=== PATIENT | female | born 1980 | race Caucasian/White ===

== ENCOUNTER 2018-12-15 20:07 | Inpatient (IN) | payer MEDICAID ==
[~2018-12-15] VITALS: Ht 167.6 cm; Wt 111.6 kg
[2018-12-15 20:16] VITALS: BP 175/91
--- NOTE | 2018-12-15 20:19 | NUR ---
PT TAKEN TO BED 5
--- NOTE | 2018-12-15 20:22 | NUR ---
38 YO F BIB SELF PRESENTS TO ED C/O 03/18 DULL, DIFFUSE ABDOMINAL PAIN SINCE 0900 THIS AM. PT ALSO REPORTS NVD; EMESIS X 10, DIARRHEA X 2. PT DENIES RECENT TRAVEL OR FEVER, PAIN/BURNING WITH URINATION. PT STATES SHE HAS HAD ABDOMINAL SURGERY IN THE PAST WHERE THEY TRIED TO "REMOVE INFECTION AND CLOSE A HOLE" BUT DOESN'T KNOW THE NAME OF THE PROCEDURE. PT STATES THE ONLY THING SHE'S EATEN TODAY IS A BANANA. -- PT AWAKE, ALERT, CALM, COOPERATIVE. ANSWERS QUESTION APPROPRIATELY. BEHAVIOR AGE APPROPRIATE. APPEARS TO BE IN PAIN. -- ABD IS LARGE, SOFT, NON-TENDER. PT COMPLAINS OF GENERAL PAIN WITH PALPATION. BOWEL SOUNDS PRESENT +4. -- SKIN PINK, WARM, DRY. BREATHING EVEN, UNLABORED. PMH-- BILATERAL OOPHERECTOMY AND HYSTERECTOMY, 2018 RX-- DENIES
--- NOTE | 2018-12-15 20:27 | NUR ---
Dr. Read examining patient.
[2018-12-15] MEDS ORDERED: ONDANSETRON 4 MG ODT PO ONE (20:35)
--- NOTE | 2018-12-15 20:53 | NUR ---
PT TAKEN TO CT VIA RMINISTERIO.
[2018-12-15 21:01] LABS: BASOPHILS % (AUTO) 0.2 % (0.0-2.0); EOSINOPHILS % (AUTO) 0.1 % (0.0-4.0); HEMATOCRIT 41.9 % (36-48); HEMOGLOBIN 14.2 g/dL (12.0-16.0); LYMPHOCYTES # (AUTO) 0.9 K/uL (2.5-16.5); LYMPHOCYTES % (AUTO) 8.1 % (20.5-51.1); MEAN CORPUSCULAR HEMOGLOBIN 30 pg (27-31); MEAN CORPUSCULAR HGB CONC 34 g/dL (33-37); MEAN CORPUSCULAR VOLUME 89.4 fL (80-94); MONOCYTES # (AUTO) 0.1 K/uL (0.8-1.0); MONOCYTES % (AUTO) 1.1 % (1.7-9.3); NEUTROPHILS # (AUTO) 10.1 K/uL (1.8-7.7); PLATELET COUNT (AUTO) 314 K/uL (140-450); RED BLOOD CELL COUNT(AUTO) 4.69 MIL/uL (4.20-5.40); RED CELL DISTRIBUTION WIDTH 12.8 % (11.6-13.7); WHITE BLOOD COUNT (AUTO) 11.1 K/uL (4.8-10.8)
[2018-12-15 21:02] LABS: BILIRUBIN,URINE NEGATIVE (NEGATIVE); BLOOD, URINE 2+ (NEGATIVE); COLOR,URINE YELLOW (YELLOW); LEUKOCYTE ESTERASE ,URINE 2+ (NEGATIVE); NITRITE, URINE NEGATIVE (NEGATIVE); UGLUCOSE NEGATIVE (NEGATIVE)
[2018-12-15 21:03] LABS: APPEARANCE,URINE HAZY (CLEAR)
[2018-12-15 21:06] LABS: RBC,URINE 11-20 (MOD) /HPF (0-5); WBC,URINE 60-80 /HPF (0-5)
--- NOTE | 2018-12-15 21:06 | NUR ---
PT RETURN FROM CT
[2018-12-15 21:09] LABS: ANION GAP 15.1 (8-16); CARBON DIOXIDE 27.5 mmol/L (21-32); CREATININE 0.7 mg/dL (0.6-1.3); POTASSIUM 3.6 mmol/L (3.5-5.1)
[2018-12-15 21:15] LABS: ALBUMIN 4.3 g/dL (3.4-5.0); TOTAL BILIRUBIN 0.4 mg/dL (0.0-1.0)
[2018-12-15 21:17] LABS: NEUTROPHILS % (AUTO) 90.5 % (42.2-75.2)
[2018-12-15] MEDS ORDERED: PIPERACILLIN/TAZOBACTAM 3.375 GM in DEXTROSE 5% 50 ML IV ONE (21:30)
[2018-12-15] MEDS ORDERED: NACL 0.9% 1,000 ML IV ONE (21:30)
[2018-12-15] MEDS ORDERED: ONDANSETRON 4 MG/2 ML VIAL IVP ONE (21:30)
[2018-12-15] MEDS ORDERED: MORPHINE SULFATE 4 MG/ML SYR IVP ONE (21:30)
[2018-12-15] MEDS ORDERED: PIPERACILLIN/TAZOBACTAM 3.375 GM VIAL IV ONE (21:53)
[2018-12-15] MEDS ORDERED: NACL 0.9% 1,000 ML IV SCH (21:57)
[2018-12-15] MEDS ORDERED: MORPHINE SULFATE 2 MG/ML SYR IVP PRN (22:00)
[2018-12-15] MEDS ORDERED: HYDROcodone/APAP 7.5/325 MG 1 TAB PO PRN (22:00)
[2018-12-15] MEDS ORDERED: ACETAMINOPHEN 325 MG TAB PO PRN (22:00)
[2018-12-15] MEDS ORDERED: DOCUSATE SODIUM 100 MG GELCAP PO PRN (22:00)
[2018-12-15 22:23] LABS: BARBITURATE, URINE NEG. ng/ml (NEG <=200); BENZODIAZEPINE, URINE NEG. ng/mL (NEG <=200); CANNABINOID, URINE POS. ng/mL (NEG <=50); COCAINE, URINE NEG. ng/mL (NEG <=300); OPIATE, URINE NEG. ng/mL (NEG <=2000); PHENCYCLIDINE SCREEN,URINE NEG. ng/mL (NEG <=25)
[2018-12-15 22:27] LABS: PROTHROMBIN TIME 9.6 secs (10.8-13.4)
[2018-12-15 22:40] LABS: CHOL/HDL RATIO 4.2 (1-4.5); PHOSPHORUS 2.8 mg/dL (2.5-4.9); THYROID STIMULATING HORMONE 2.16 uIU/mL (0.34-3.74)
[2018-12-15] MEDS ORDERED: ALBUTEROL SULFATE/IPRATROPIU 3 ML SOL IH PRN (23:15)
--- NOTE | 2018-12-15 23:17 | NUR ---
ADMITTED 38 YEARS OLD FEMALE FROM ER VIA GURNEY CC: ABDOMINAL PAIN. DX; ACUTE APPY. SEE NURSING ADMISSION ASSESSMENT AND HISTORY. ORIENTED TO ROOM AND UNIT ROUTINES. CALL LIGHT WITHIN REACH. CARE BOARD FILL OUT. PLAN OF CARE DISCUSSED WITH PATIENT AT BEDSIDE, VERBALIZED UNDERSTANDING WELL.
[2018-12-15] MEDS: DEXT 5% / NACL 0.9% 500 ML IV SCH (23:50)
[2018-12-15] MEDS: FAMOTIDINE 20 MG/2 ML VIAL IV SCH (23:58)
[2018-12-16] VITALS (7 sets, daily range): BP systolic 109–148; BP diastolic 54–85
--- NOTE | 2018-12-16 00:38 | NUR ---
VITAL SIGNS STABLE. FEELING BETTER AFTER MORPHINE. VOMITTED ONCE. NORCO DID NOT HELP. NPO EXCEPT MEDICATION. CALL LIGHT WITHIN REACH.
[2018-12-16] MEDS ORDERED: MORPHINE SULFATE 2 MG/ML SYR IVP PRN (00:45)
--- NOTE | 2018-12-16 02:30 | NUR ---
ASLEEP NO COMPLAINS. CALL LIGHT WITHIN REACH.
[2018-12-16] MEDS: DEXT 5% / NACL 0.9% 500 ML IV SCH (03:50)
--- NOTE | 2018-12-16 04:23 | NUR ---
AFEBRILE. VITAL SIGNS STABLE. NO COMPLAINS. CALL LIGHT WITHIN REACH. SLEEPING WELL.
[2018-12-16] MEDS: metroNIDAZOLE 500 MG/NS PREMIX 100 ML IV SCH ×3 (04:42→20:28)
[2018-12-16] MEDS ORDERED: PIPERACILLIN/TAZOBACTAM 3.375 GM VIAL IV ONE (05:02)
[2018-12-16] MEDS: BLOOD GLUCOSE MONITORING 1 DEV DEV FS SCH ×4 (05:50→20:26)
[2018-12-16] MEDS ORDERED: ALBUTEROL SULFATE/IPRATROPIU 3 ML SOL IH SCH (06:00)
[2018-12-16] MEDS ORDERED: PIPERACILLIN/TAZOBACTAM 3.375 GM in DEXTROSE 5% 50 ML IV SCH (06:00)
[2018-12-16 06:19] LABS: ANION GAP 12.4 (8-16); CARBON DIOXIDE 28.1 mmol/L (21-32); CREATININE 0.7 mg/dL (0.6-1.3); POTASSIUM 3.5 mmol/L (3.5-5.1)
[2018-12-16 06:21] LABS: BASOPHILS % (AUTO) 0.1 % (0.0-2.0); EOSINOPHILS % (AUTO) 0.2 % (0.0-4.0); HEMATOCRIT 37.4 % (36-48); HEMOGLOBIN 12.6 g/dL (12.0-16.0); LYMPHOCYTES # (AUTO) 2.1 K/uL (2.5-16.5); LYMPHOCYTES % (AUTO) 19.7 % (20.5-51.1); MEAN CORPUSCULAR HEMOGLOBIN 31 pg (27-31); MEAN CORPUSCULAR HGB CONC 34 g/dL (33-37); MONOCYTES # (AUTO) 0.6 K/uL (0.8-1.0); MONOCYTES % (AUTO) 5.7 % (1.7-9.3); NEUTROPHILS # (AUTO) 7.9 K/uL (1.8-7.7); NEUTROPHILS % (AUTO) 74.3 % (42.2-75.2); PLATELET COUNT (AUTO) 291 K/uL (140-450); RED BLOOD CELL COUNT(AUTO) 4.11 MIL/uL (4.20-5.40); WHITE BLOOD COUNT (AUTO) 10.6 K/uL (4.8-10.8)
--- NOTE | 2018-12-16 06:22 | NUR ---
SLEEPING WELL. NO COMPLAINS. CALL LIGHT WITHIN REACH.
--- NOTE | 2018-12-16 07:18 | NUR ---
ENDORSED CARE AT BEDSIDE WITH JOSELO KABA, PATIENT IN STABLE CONDITION.
--- NOTE | 2018-12-16 07:21 | NUR ---
RECEIVED REPORT FROM FUR MIXER RN. PT IS AAOX4. NO COMPLAINTS OF PAIN AT THIS TIME. PT IV IN THE RIGHT AC 20G INFUSING D5NS @60ML/HR. IV PATENT AND INTACT. PT SKIN IS INTACT. BREATH SOUNDS CLEAR. DISCUSSED PLAN OF CARE WITH PT. PT VERBALIZED UNDERSTANDING. WILL MONITOR PT FREQUENTLY.
[2018-12-16] MEDS: DEXT 5% /NACL 0.9% 1,000 ML IV SCH ×2 (07:28→18:20)
--- NOTE | 2018-12-16 08:15 | NUR ---
PATIENT HAS BEEN SCREENED AND CATEGORIZED LOW NUTRITION RISK. PATIENT WILL BE SEEN WITHIN 7 DAYS OF ADMISSION. 12/22/[address]
[2018-12-16] MEDS: LACTOBACILLUS RHAMNOSUS GG 1 EACH CAP PO SCH (09:00)
[2018-12-16] MEDS ORDERED: LACTOBACILLUS RHAMNOSUS GG 1 EACH CAP PO SCH (09:00)
--- NOTE | 2018-12-16 09:28 | NUR ---
PATIENT [id number] IN BED. SHE REFUSED MORNING CULTURELLE AT THIS TIME SINCE SHE FEELS THAT SHE WILL GET NAUSEAS FROM NOT EATING ANYTHING. ALL NEEDS CURRENTLY MET. WILL CONTINUE TO ROUND FREQUENTLY ON PT.
--- NOTE | 2018-12-16 09:34 | NUR ---
ADMINISTERED MORNING MEDS TO PT. PT TOLERATED THEM WELL. SCHEDULED PAIN MED GIVEN FOR RELIEF. PT ASKING FOR MORPHINE BUT EDUCATED PT ON IMPORTANCE OF NOT OVER MEDICATING PT WITH PAIN MEDS. WILL HOLD MORPHINE FOR LATER. PT VERBALIZED UNDERSTANDING OF TEACHING. WILL CONTINUE TO ROUND FREQUENTLY ON PT. Addendum: 12/16/18 at 1133 by Kristen Sharif RN WRONG PT
--- NOTE | 2018-12-16 11:49 | NUR ---
PT RESTING IN BED. NO COMPLAINTS OF PAIN OR SOB AT THIS TIME. WILL CONTINUE TO ROUND FREQUENTLY ON PT.
[2018-12-16] MEDS: PIPERACILLIN/TAZOBACTAM 3.375 GM in DEXTROSE 5% 100 ML IV SCH ×3 (12:01→23:20)
--- NOTE | 2018-12-16 12:29 | NUR ---
PATIENT TAKEN TO CT FOR CT OF ABD/PELVIS WITH ORAL AND IV CONTRAST.
--- NOTE | 2018-12-16 12:52 | NUR ---
PT RETURNED FROM CT. ALL NEEDS CURRENTLY MET. PT DENIES PAIN OR SOB. WILL CONTINUE TO ROUND FREQUENTLY ON PT.
--- NOTE | 2018-12-16 13:47 | NUR ---
PT SLEEPING IN BED. WILL CONTINUE TO ROUND FREQUENTLY ON PT. NO COMPLAINTS OF PAIN OR DISTRESS AT THIS TIME.
--- NOTE | 2018-12-16 15:42 | NUR ---
PT RESTING IN BED WITH FAMILY AT BEDSIDE. WILL CONTINUE TO ROUND FREQUENTLY ON PT. NO COMPLAINTS OF PAIN OR DISTRESS AT THIS TIME. BED IN LOW POSITION, CALL LIGHT WITHIN REACH.
--- NOTE | 2018-12-16 17:42 | NUR ---
PT RESTING IN BED. NO COMPLAINTS OF PAIN AT THIS TIME. WILL CONTINUE TO ROUND FREQUENTLY ON PT.
--- NOTE | 2018-12-16 18:20 | NUR ---
FAXED RELEASE OF MEDICAL RECORDS FORMS TO [facility]. COPIES OF FAX AND RECEIPT CONFIRMATION IN PT CHART.
--- NOTE | 2018-12-16 19:18 | NUR ---
ENDORSED PT TO APPARATUS REPAIR MECHANIC FOR CONTINUITY OF CARE. PT IN STABLE CONDITION AT THIS TIME. APPARATUS REPAIR MECHANIC AWARE OF PT NEEDING TO BE READY FOR RADIOLOGY BY [phone] IN THE MORNING. PYLE CATHETER ORDER PLACED BY RESIDENT
--- NOTE | 2018-12-16 19:35 | NUR ---
RECEIVED FROM AM RN IN BED SITTING AT THE EDGE A/O X 4. ROM X 4. ABLE TO VERBALIZE NEEDS WELL IN [place]. CALL LIGHT WITH IN REACH. ENCOURAGED TO CALL FOR ANY HELP SHE MAY NEED OR IF IN PAIN. PT. 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 ORDERED. PT. BEEN NPO SINCE REPORTED BY AM RN RT DX. WAS APPENDICITIS. IVF SITE INTACT AND NO INFILTRATION. TELEMETRY MONITORING. NSR . CARE PLANS FOR THE NIGHT DISCUSSED WITH HER AND CALL LIGHT USE EXPLAINED.
--- NOTE | 2018-12-16 21:34 | NUR ---
NEW IVF SITE INSERTED TO LEFT HAND #22 BY CHARGE NURSE. TOLERATED WELL. GOOD BLOOD RETURN. OLD IVF LINE TO RAC LEAKING. DISCONTINUED WITH TIP INTACT. COVERED WITH BAND AID. TOLERATED WELL. NO FURTHER COMPLAINTS DONE.
[2018-12-16] MEDS: ONDANSETRON 4 MG/2 ML VIAL IM/IVP PRN (23:20)
[2018-12-16] MEDS: FAMOTIDINE 20 MG/2 ML VIAL IV SCH (23:20)
--- NOTE | 2018-12-16 23:48 | NUR ---
MD RESIDENT GRAVES AWARE OF HR 53. " SHE WILL BE OK, MORPHINE IVP WILL NOT MAKE HER HR GO DOWN MORE. SHE WILL BE FINE " PT. MEDICATED WITH MORPHINE IVP REQUESTED AND ORDERED FOR ABDOMINAL PAIN COMPLAINT.
--- NOTE | 2018-12-17 01:30 | NUR ---
SLEEPING AT THIS TIME. NO RESTLESSNESS. TELEMETRY MONITORING. IVF SITE INTACT AND NO INFILTRATION NOTED. REMINDED EARLIER NPO STATUS. PT. AWARE OF IT.
--- NOTE | 2018-12-17 03:10 | NUR ---
SLEEPING. NO RESTLESSNESS. TELEMETRY MONITORING.
[2018-12-17] MEDS: DEXT 5% /NACL 0.9% 1,000 ML IV SCH (03:28)
[2018-12-17] MEDS: metroNIDAZOLE 500 MG/NS PREMIX 100 ML IV SCH ×2 (04:33→13:27)
[2018-12-17 04:43] VITALS: BP 122/73
[2018-12-17] MEDS: BLOOD GLUCOSE MONITORING 1 DEV DEV FS SCH ×3 (05:24→16:30)
--- NOTE | 2018-12-17 05:25 | NUR ---
SLEPT WELL THIS SHIFT. BLOOD SUGAR CHECK PER FINGERSTICK 109. NO INSULIN COVERAGE GIVEN.
[2018-12-17 05:45] LABS: ANION GAP 10.9 (8-16); CREATININE 0.7 mg/dL (0.6-1.3)
[2018-12-17 05:49] LABS: POTASSIUM 2.9 mmol/L (3.5-5.1)
[2018-12-17 05:56] LABS: PHOSPHORUS 3.5 mg/dL (2.5-4.9)
--- NOTE | 2018-12-17 06:03 | NUR ---
PT. K =2.9 . RESIDENT MD AWARE INFORMED BY CHARGE NURSE. WITH NEW ORDER FOR K. PT. MADE AWARE.
[2018-12-17 06:21] LABS: BASOPHILS % (AUTO) 0.4 % (0.0-2.0); EOSINOPHILS # (AUTO) 0.2 K/uL (0-0.4); EOSINOPHILS % (AUTO) 1.9 % (0.0-4.0); HEMATOCRIT 35.6 % (36-48); HEMOGLOBIN 12.1 g/dL (12.0-16.0); LYMPHOCYTES # (AUTO) 2.3 K/uL (2.5-16.5); LYMPHOCYTES % (AUTO) 28.2 % (20.5-51.1); MEAN CORPUSCULAR HEMOGLOBIN 31 pg (27-31); MEAN CORPUSCULAR HGB CONC 34 g/dL (33-37); MONOCYTES # (AUTO) 0.5 K/uL (0.8-1.0); MONOCYTES % (AUTO) 6.2 % (1.7-9.3); NEUTROPHILS # (AUTO) 5.3 K/uL (1.8-7.7); NEUTROPHILS % (AUTO) 63.3 % (42.2-75.2); PLATELET COUNT (AUTO) 287 K/uL (140-450); RED BLOOD CELL COUNT(AUTO) 3.91 MIL/uL (4.20-5.40); RED CELL DISTRIBUTION WIDTH 13.1 % (11.6-13.7); WHITE BLOOD COUNT (AUTO) 8.3 K/uL (4.8-10.8)
[2018-12-17] MEDS: PIPERACILLIN/TAZOBACTAM 3.375 GM in DEXTROSE 5% 100 ML IV SCH (06:27)
[2018-12-17] MEDS ORDERED: POTASSIUM CHLORIDE 10 MEQ TABER PO SCH (06:45)
--- NOTE | 2018-12-17 06:55 | NUR ---
P.O. K TAKEN . EDUCATED TO PROS AND CONS OF TAKING IT. ENCOURAGED TO TRY AND NOT VOMIT IT. "OK" A/O X 4. ROM X 4. CLEAR SPEECH AND ABLE TO COMMUNICATE WELL WITH ME. WILL ENDORSE TO AM RN FOR CONTINUITY OF CARE.
[2018-12-17] MEDS ORDERED: POTASSIUM CHLORIDE 10 MEQ TABER PO ONE (06:57)
[2018-12-17] MEDS ORDERED: POTASSIUM CHLORIDE 40 MEQ, LIDOCAINE MPF 1% - 5 mL VIAL 25 MG in NACL 0.9% 250 ML IV SCH ×6 (07:30)
--- NOTE | 2018-12-17 07:30 | NUR ---
PATIENT WAS AWAKE, ALERT. RESPIRATION EVEN, UNLABOR ON ROOM AIR. SKIN DRY AND WARM. IV PATENT AND INTACT. DENIED PAIN, SOB. COMPLAINED OF NAUSEA, WILL MEDICATE PER ORDER. PYLE IS IN PLACE, DRAINING DARK YELLOW URINE. PLAN OF CARE WAS DISCUSSED WITH PATIENT. BED AT LOW POSITION, SIDE RAILS UP. CALL LIGHT WITHIN REACH.
--- NOTE | 2018-12-17 07:45 | NUR ---
FOUND PT AWAKE, ALERT, AND STANDING BY BEDSIDE. NO RESPIRATORY DISTRESS AT THIS TIME. 02 SAT 98% ON RA. REFUSED INCENTIVE SPIROMETRY DUE TO HER SURGERY BEING CANCELLED.
[2018-12-17 08:00] VITALS: BP 127/86
[2018-12-17] MEDS ORDERED: NACL 0.9% 1,000 ML IV SCH ×2 (08:00→14:00)
[2018-12-17] MEDS: ONDANSETRON 4 MG/2 ML VIAL IM/IVP PRN (08:24)
[2018-12-17] MEDS: LACTOBACILLUS RHAMNOSUS GG 1 EACH CAP PO SCH (08:24)
[2018-12-17] MEDS ORDERED: FAMOTIDINE 20 MG TAB PO SCH (09:00)
[2018-12-17] MEDS ORDERED: DEXT 5% /NACL 0.9% 1,000 ML IV SCH (09:10)
--- NOTE | 2018-12-17 10:02 | NUR ---
PATIENT WAS AWAKE, ALERT, RESTING COMFORTABLY IN BED. NO DISTRESS NOTED AT THIS TIME. PATIENT WAS EXPLAINED THAT SHE NEEDS TO BE NPO IN PREPARATION FOR BARIUM ENEMA. PATIENT VERBALIZED UNDERSTANDING.
[2018-12-17] MEDS ORDERED: ONDA8TAB PO (10:18)
[2018-12-17] MEDS ORDERED: LACT10CA PO (10:18)
[2018-12-17] MEDS ORDERED: FAMO20TA13 PO (10:18)
[2018-12-17] MEDS ORDERED: NITR100C7 PO (10:18)
[2018-12-17] MEDS ORDERED: METR250T2 PO (10:18)
--- NOTE | 2018-12-17 11:51 | NUR ---
PATIENT WAS SLEEPING COMFORTABLY. RESPIRATION EVEN, UNLABOR ON ROOM AIR. DENIED PAIN, N/V. NO DISTRESS NOTED AT THIS TIME
--- NOTE | 2018-12-17 12:30 | NUR ---
PATIENT HAD AN EPISODE OF EMESIS. ZOFRAN WAS GIVEN PER ORDER. Addendum: 12/17/18 at 1411 by Bridgett Short RN wrong patient
[2018-12-17] MEDS ORDERED: PIPERACILLIN/TAZOBACTAM 3.375 GM in DEXTROSE 5% 100 ML IV SCH (13:00)
[2018-12-17 13:06] LABS: CREATININE 0.7 mg/dL (0.6-1.3)
--- NOTE | 2018-12-17 14:00 | NUR ---
PATIENT WAS AWAKE, ALERT. RESPIRATION EVEN, UNLABOR ON ROOM AIR. NO DISTRESS NOTED AT THIS TIME
--- NOTE | 2018-12-17 15:40 | NUR ---
I RECEIVED A CALL FROM THE INSURANCE [facility] [facility] [phone] REGARDING A TRANSFER TO THE CONTRACTED FACILITY . I SPOKE WITH DR SALINAS (RESIDENT) IF THE PATIENT IS STABLE FOR TRANSFER. DR SALINAS STATED PATIENT IS STABLE FOR TRANSFER. I PROVIDED CELL PHONE FOR MD -MD REPORT AND PHONE # FOR THE FLOOR.
[2018-12-17 16:00] VITALS: BP 136/80
[2018-12-17] MEDS ORDERED: ZOS3.375I IV (16:09)
--- NOTE | 2018-12-17 16:30 | NUR ---
PATIENT WAS AWAKE, ALERT. RESPIRATION EVEN, UNLABOR ON ROOM AIR. DENIED PAIN AT THIS TIME. PATIENT WAS UPDATED WITH TRANSFER PLAN. PATIENT REQUESTED TO HAVE PYLE CATH REMOVED, STATED THAT IT IS BOTHERING HER. PYLE WAS REMOVED, 9CC WAS DRAWN OF CUFF. PATIENT TOLERATED WELL.
--- NOTE | 2018-12-17 17:14 | NUR ---
WAGNER FROM PT'S INSURANCE ([employer] [facility]) CALLED THAT [facility] ACCEPTED PT. ROOM 311-A. TO CALL FOR REPORT: TEL # [phone] [phone]. AUTHORIZATION FOR TRANSPORT FOR [facility] ([id number]). DR. AVILA AND KEILA MADE AWARE.
--- NOTE | 2018-12-17 18:00 | NUR ---
TRANSPORTATION SET UP THROUGH [facility], SPOKE WITH WAGNER, AUTH GIVEN. ETA OF TRANSPORT IS BEFORE 7PM PER WAGNER. ELISA-RN NOTIFIED.
--- NOTE | 2018-12-17 18:38 | NUR ---
REPORT WAS GIVEN TO GEORGETTE KABA AT [facility], [place] TIME AT 7PM
--- NOTE | 2018-12-17 18:38 | NUR ---
DISCHARGE INSTRUCTION WAS GIVEN AND EXPLAINED TO THE PATIENT. PATIENT VERBALIZED UNDERSTANDING. PATIENT WILL BE TRANSFERRED WITH IV AT THIS TIME. IV RIGHT HAND PATENT AND INTACT
--- NOTE | 2018-12-17 18:50 | NUR ---
REPORT WAS GIVEN TO EMT. PATIENT WAS TRANSFERRED OUT IN [facility]. ALL BELONGINGS WERE TAKEN WITH THE PATIENT. PATIENT IS STABLE AT THIS TIME
[2018-12-18 06:12] LABS: CHLAMYDIA TRACHOMATIS AMP DNA Negative (Negative)
[2018-12-19 07:40] LABS: RAPID PLASMA REAGIN NON-REACTIVE (Non Reactiv)
== END 2018-12-17 18:50 | disposition short-term general hospital (02) | DRG 531 ==
LOC: MED 20:07 → MTU 22:01
PROVIDERS: ADMIT General Practice; ATTEND General Practice
DX: N76.0 Acute vaginitis (principal); K35.80 Unspecified acute appendicitis; K76.0 Fatty (change of) liver, not elsewhere classified; K52.9 Noninfective gastroenteritis and colitis, unspecified; D72.829 Elevated white blood cell count, unspecified; E66.9 Obesity, unspecified; G47.00 Insomnia, unspecified; T40.7X5A Adverse effect of cannabis (derivatives), initial encounter; L98.8 Other specified disorders of the skin and subcutaneous tissue; R11.10 Vomiting, unspecified; E87.6 Hypokalemia; R73.9 Hyperglycemia, unspecified; M48.07 Spinal stenosis, lumbosacral region; N39.0 Urinary tract infection, site not specified; F12.90 Cannabis use, unspecified, uncomplicated; E78.5 Hyperlipidemia, unspecified; K21.9 Gastro-esophageal reflux disease without esophagitis; Z68.39 Body mass index [BMI] 39.0-39.9, adult; Z71.3 Dietary counseling and surveillance; Z90.710 Acquired absence of both cervix and uterus; Z98.891 History of uterine scar from previous surgery; Z90.722 Acquired absence of ovaries, bilateral; Y92.89 Other specified places as the place of occurrence of the external cause; Z79.899 Other long term (current) drug therapy
CPT/HCPCS: 36415; 80048; 80053; 80305; 81001; 81025; 82948; 83036; 83605; 83690; 83735; 84100; 84443; 85025; 85610; 85730; 86592; 87040; 87070; 87081; 87086; 87491; 93005; 93925; 93970; 96374; 96375; 99285; J2001; J2270; J2405; J2543; J3480; J3490; J7030; J7042; J7060; Q0092; Q0162; Q9967